=== PATIENT | female | born 1985 | race Caucasian/White ===

== ENCOUNTER → 2017-03-25 | Outpatient (CLI) | payer OTHER ==
[2017-03-25 16:35] LABS: BASO # 0.1 10^3/uL (0.0-0.2); BASO % 0.6 % (0.0-1.0); EOS # 0.2 10^3/uL (0.0-0.50); HEMOGLOBIN 15.4 g/dl (12.0-16.0); IMMATURE GRANULOCYTE % 0.2 % (0-0); LYMPH # 2.6 10^3/uL (1.5-4.5); LYMPH % 30.1 % (24.0-44.0); MEAN CORPUSCULAR HEMOGLOBIN 29.3 pg (27.0-33.0); MEAN CORPUSCULAR VOLUME 83.8 fl (80.0-96.0); MONO # 0.7 10^3/uL (0.0-0.8); MONO % 7.8 % (0.0-5.0); NEUTROPHILS # 5.1 10^3/uL (1.8-7.7); NEUTROPHILS % 59.3 % (36.0-66.0); PLATELET COUNT, AUTOMATED 267 10^3/uL (150-450); RED BLOOD COUNT 5.25 10^6/uL (4.00-5.40); RED CELL DISTRIBUTION WIDTH 12.7 % (11.5-14.5); WHITE BLOOD COUNT 8.6 10^3/uL (4.0-10.0)
[2017-03-25 17:14] LABS: ESTIMATED AVERAGE GLUCOSE 91 MG/DL (60-110); HEMOGLOBIN A1c 4.8 %
[2017-03-25 17:21] LABS: FREE T4 0.76 NG/DL (0.76-1.46)
== END ==
LOC: M LAB 15:46
DX: N92.6 Irregular menstruation, unspecified (principal)
CPT/HCPCS: 84443

== ENCOUNTER → 2018-03-31 | Outpatient (REF) | payer OTHER ==
[2018-04-03 18:21] LABS: HPV HYBRID CAPTURE II Negative (Negative)
== END ==
LOC: M LAB REF 18:17
PROVIDERS: ATTEND Obstetrics & Gynecology
DX: Z01.419 Encounter for gynecological examination (general) (routine) without abnormal findings (principal); Z11.51 Encounter for screening for human papillomavirus (HPV)
CPT/HCPCS: 87624; G0123

== ENCOUNTER → 2018-12-06 | Outpatient (REF) | payer OTHER ==
[2018-12-06 20:31] LABS: FREE T4 0.96 NG/DL (0.76-1.46); THYROID STIMULATING HORMONE 2.2 uIU/ML (0.358-3.740)
[2018-12-06 20:34] LABS: ESTRADIOL 56.8 PG/ML; HEMOGLOBIN A1c 4.9 %; PROLACTIN 12.1 NG/ML
== END ==
LOC: M LABDRWAD 19:43
PROVIDERS: ATTEND Obstetrics & Gynecology
DX: N97.9 Female infertility, unspecified (principal)

== ENCOUNTER → 2018-12-13 | Outpatient (CLI) | payer OTHER ==
[~2018-12-13] MED LIST: ISOVUE-370 76% 100ML VIAL (Q9967) As Ordered ONE
--- NOTE | 2018-12-13 13:47 | REP ---
Show setting.: Radiopaque contrast is infused into the endometrial canal through a catheter by the switch maker Dr. Carrillo. Fluoroscopy is performed during the infusion. There is a bicornuate uterus. The right and left endometrial canal is unremarkable. The fallopian tubes are unremarkable bilaterally. There is bilateral intraperitoneal spill. Impression: Bicornuate uterus, otherwise normal hysterosalpingogram. Fluoroscopic exposure time is 0.4 minutes. Electronically Signed by Chucho Severino MD 12/13/2018 01:38 P
== END ==
LOC: M RADPRO 11:24
PROVIDERS: ATTEND Obstetrics & Gynecology
DX: N97.0 Female infertility associated with anovulation (principal); Q51.3 Bicornate uterus
CPT/HCPCS: 58340; 74740; Q9967

== ENCOUNTER → 2019-01-11 | Outpatient (CLI) | payer OTHER ==
[~2019-01-11] MED LIST changes: -ISOVUE-370 76% 100ML VIAL (Q9967) As Ordered ONE; +PROHANCE 279.3MG/ML 15ML VIAL (A9576) As Ordered ONE
--- NOTE | 2019-01-12 09:23 | REP ---
MRI PELVIS WITH AND WITHOUT CONTRAST: TECHNIQUE: Multiple sequences obtained in the axial, coronal, and sagittal planes prior to and following the intravenous administration of 15 mL ProHance. The uterus is retroverted. Length of the uterus is approximately 7.7 cm. There are two horns of the uterine cavity, and the uterus has a complete septate configuration, with a midline septation dividing the endometrial cavity in two, extending all the way to the internal cervical os. Endometrial thickness in each horn is approximately 4 mm. No focal myometrial abnormality is seen. Ovaries are normal in size and appearance with normal subcentimeter follicles bilaterally. No adnexal mass or free fluid is seen. There is no adenopathy in the pelvis. The visualized osseous structures appear unremarkable. There is no enhancing mass on postcontrast images. IMPRESSION: Uterus has a complete septate configuration, as discussed in detail above. Ovaries appear normal. Electronically Signed by Chucho Davidson MD 01/12/2019 02:20 P
== END ==
LOC: M RAD 16:43
PROVIDERS: ATTEND Obstetrics & Gynecology
DX: Q51.818 Other congenital malformations of uterus (principal); N85.4 Malposition of uterus
CPT/HCPCS: 72197; A9576

== ENCOUNTER → 2019-09-26 | Outpatient (REF) | payer OTHER ==
[~2019-09-26] MED LIST changes: +MULTTAB20 PO; -PROHANCE 279.3MG/ML 15ML VIAL (A9576) As Ordered ONE; +QC F0.52 PO; +VITA-243 PO
== END ==
LOC: M LAB REF 17:17
PROVIDERS: ATTEND Physician Assistant
DX: D23.5 Other benign neoplasm of skin of trunk (principal)

== ENCOUNTER → 2020-01-25 | Outpatient (CLI) | payer OTHER ==
[2020-01-25 07:29] LABS: HCG, SERUM QUANTITATIVE < 1.0 MIU/ML
--- NOTE | 2020-01-25 07:37 | REPVR ---
PROCEDURE INFORMATION: Exam: US Pelvis, Transvaginal Exam date and time: 01/25/2020 6:57 AM Age: 34 years old Clinical indication: Screening exam; Follicle study; Additional info: Ovarian dysfunction labs 1st main reg TECHNIQUE: Imaging protocol: Real-time transvaginal pelvic ultrasound with image documentation. Transvaginal imaging was used for better evaluation of the endometrium, adnexa, and/or cervix. COMPARISON: MRI PELVIS W/O FOLL WITH CON 01/11/2019 6:07 PM FINDINGS: Uterus/cervix: Uterus measures 7.2 x 3.0 x 5.3 cm. Septate uterus with 2 endometrial canals better seen on prior MR examination. Endometrial stripe measures 4.8 mm . Right adnexa: Right ovary measures 3.5 x 1.9 x 2.7 cm. Multiple prominent follicles are seen in the right ovary measuring up to 10 mm. Left adnexa: Left ovary measures 2.2 x 1.2 x 1.8 cm. Few follicles are also seen in the left ovary measuring up to 6 mm. Intraperitoneal space: No free fluid. IMPRESSION: Septate uterus with 2 endometrial canals better seen on the MR examination. Multiple follicles in the right ovary and few follicles in the left ovary. No free fluid. Electronically signed by: Loretta Pierson On 01/25/2020 07:36:45 AM
[2020-01-25 08:33] LABS: ESTRADIOL 38.4 PG/ML; LUTEINIZING HORMONE 3.8 mIU/mL; PROGESTERONE 0.42 NG/ML
[2020-01-25 08:34] LABS: FOLLICLE STIMULATING HORMONE 7.2 mIU/mL
== END ==
LOC: M RAD 06:25
PROVIDERS: ATTEND Obstetrics & Gynecology Reproductive Endocrinology
DX: E28.9 Ovarian dysfunction, unspecified (principal)

== ENCOUNTER → 2020-02-01 | Outpatient (CLI) | payer OTHER ==
--- NOTE | 2020-02-01 08:06 | REPVR ---
PROCEDURE INFORMATION: Exam: US Pelvis, Transvaginal Exam date and time: 02/01/2020 7:00 AM Age: 34 years old Clinical indication: Screening exam; Follilce study; Additional info: Ovarian dysfunction labs first TECHNIQUE: Imaging protocol: Real-time transvaginal pelvic ultrasound with image documentation. Transvaginal imaging was used for better evaluation of the endometrium, adnexa, and/or cervix. COMPARISON: Transvaginal NON- US 01/25/2020 7:42 AM FINDINGS: Uterus/cervix: Retroverted uterus measures about 7.1 x 3.3 x 5.3 cm. Endometrial thickness is 7.2 mm on 1 image and 4 mm on a 2nd image. Right adnexa: Right ovary measures 3.4 x 2.7 x 4.4 cm with multiple follicles of somewhat varying size measuring up to 10 x 13, 8 x 9, 12 x 7 and 13 x 10 mm. Left adnexa: The left ovary measures 4.1 x 1.9 cm on sagittal images. The largest follicle is measured at 15 x 12 mm with other smaller follicles measuring 5, 8, 7, 7, 6, and 5 mm in largest diameter. Intraperitoneal space: None. IMPRESSION: 1. Right ovary measures 3.4 x 2.7 x 4.4 cm with multiple follicles of varying size measuring up to 10 x 13, 8 x 9, 12 x 7 and 13 x 10 mm. 2. The left ovary measures 4.1 x 1.9 cm on sagittal images. The largest follicle is measured at 15 x 12 mm with other smaller follicles measuring 5, 8, 7, 7, 6, and 5 mm in largest diameter. Electronically signed by: Morgan Eugene On 02/01/2020 08:05:57 AM
[2020-02-01 09:24] LABS: ESTRADIOL 86.7 PG/ML; LUTEINIZING HORMONE 4.9 mIU/mL; PROGESTERONE 0.28 NG/ML
== END ==
LOC: M RAD 06:25
PROVIDERS: ATTEND Obstetrics & Gynecology Reproductive Endocrinology
DX: E28.9 Ovarian dysfunction, unspecified (principal)

== ENCOUNTER → 2020-02-03 | Outpatient (CLI) | payer OTHER ==
--- NOTE | 2020-02-03 09:02 | REP ---
INDICATION: INFERTILITY LAB 1ST US 2ND. COMPARISON: 02/01/2020 TECHNIQUE: Endovaginal probe pelvic ultrasound for fertility evaluation FINDINGS: Sonographic evaluation again shows retroverted uterus measuring 7.9 x 3.3 x 4.9 cm endometrial stripe has 3 line appearance and thickness of 7.9 mm. No fluid in the endometrial cavity or endocervical canal. Uterus has a subseptate configuration. No fluid in the cul-de-sac. The right ovary is 3.6 x 2.2 x 2.6 cm. There are 5 follicles a cm or larger and they measure as follows: 11 x 8.2 mm, 10.3 x 5.9 mm, 12.7 x 0.2 mm, 16.6 x 10 mm, 10.4 x 6.5 mm. Additionally, there are 11 follicles in the 3-8 mm range. The left ovary is 3.5 x 2.5 x 3.5 cm. There are 2 follicles over a cm with the larger 20.6 x 15.5 mm in the smaller 10.3 x 7.3 mm. There are an additional 6 follicles in the 3-7.9 mm range. IMPRESSION: 1. Retroverted uterus with no fluid in the cul-de-sac or endometrial cavity. Endometrial stripe 7.9 mm in 3 line appearance 2. The right ovary with 5 follicles over a cm and 11 subcentimeter follicles. 3. Left ovary with 2 follicles over a cm and 6 in subcentimeter range. See details above <Electronically signed by Ulises Carvajal > 02/03/20 0858
[2020-02-03 09:06] LABS: ESTRADIOL 157.1 PG/ML; LUTEINIZING HORMONE 3.7 mIU/mL; PROGESTERONE 0.29 NG/ML
== END ==
LOC: M RAD 07:30
PROVIDERS: ATTEND Obstetrics & Gynecology Reproductive Endocrinology
DX: E28.9 Ovarian dysfunction, unspecified (principal)

== ENCOUNTER → 2020-04-27 | Outpatient (CLI) | payer BC ==
--- NOTE | 2020-04-27 08:46 | REP ---
INDICATION: OVARIAN DYSFUNCTION LABS FIRST COMPARISON: 02/03/2020 TECHNIQUE: Transvaginal evaluation of the pelvis and adnexa with color Doppler evaluation of the ovaries. FINDINGS: Bladder is collapsed. Uterus has a septated appearance and measures 6.9 x 3.8 x 5.2 cm. The left endometrial complex measures 3 mm thickness while the right endometrial complex measures 5 mm thickness with suggestion for 6 mm polyp. Right ovary measures 3.6 x 2.0 x 3.4 cm and includes innumerable follicles between 2 and 9 mm. Left ovary measures 2.7 x 1.2 x 2.4 cm and includes 10 mm follicle along with innumerable follicles between 2 and 9 mm. No pelvic fluid. IMPRESSION: Uterus appears septated as described above with possible 6 mm polyp in the right endometrial complex. Ovaries demonstrate innumerable primarily subcentimeter follicles. <Electronically signed by Shahid Howard > 04/27/20 0813
[2020-04-27 08:55] LABS: HCG, SERUM QUANTITATIVE < 1.0 MIU/ML
[2020-04-27 10:01] LABS: LUTEINIZING HORMONE 5.6 mIU/mL; PROGESTERONE 0.42 NG/ML
[2020-04-27 10:02] LABS: ESTRADIOL 33.5 PG/ML; FOLLICLE STIMULATING HORMONE 6.7 mIU/mL
== END ==
LOC: M RAD 07:26
PROVIDERS: ATTEND Obstetrics & Gynecology Reproductive Endocrinology
DX: E28.9 Ovarian dysfunction, unspecified (principal)

== ENCOUNTER → 2020-05-04 | Outpatient (CLI) | payer BC ==
--- NOTE | 2020-05-04 08:32 | REP ---
INDICATION: INFERTILTIY - STAT LABS FIRST. COMPARISON: Comparison study 27 April 2020.. TECHNIQUE: Transvaginal pelvic sonography. Ovarian follicle study. FINDINGS: Uterine dimensions are 7.4 x 3.0 x 5.1 cm. Subseptate uterine morphology is seen. Endometrial echo is 0.7 cm thick. No free fluid or focal uterine mass. Right ovarian dimensions overall today are 3.0 x 3.4 x 3.4 cm. There are 4 follicles measuring greater than a cm in the right ovary as follows: 2.0 x 1.2, 1.6 x 1.2, 1.3 x 0.7, and 1.0 x 0.8 cm. In addition, the right ovary contains 5 follicles ranging in size from 0.4-0.8 cm. The overall dimensions of the left ovary are 4.3 x 2.5 x 3.0 cm. There are 2 follicles in the left ovary greater than a cm as follows: 1.4 x 1.2 and, and 1.0 x 0.7 cm. In addition, the left ovary contains 6 follicles ranging in size from 0.50.9 cm. IMPRESSION: Pelvic sonography, ovarian follicle study as above. <Electronically signed by Sergio Madrigal > 05/04/20 0839
[2020-05-04 10:00] LABS: ESTRADIOL 166.2 PG/ML; LUTEINIZING HORMONE 2.7 mIU/mL; PROGESTERONE 0.49 NG/ML
== END ==
LOC: M RAD 06:34
PROVIDERS: ATTEND Obstetrics & Gynecology Reproductive Endocrinology
DX: E28.9 Ovarian dysfunction, unspecified (principal)

== ENCOUNTER → 2020-05-07 | Outpatient (CLI) | payer BC ==
--- NOTE | 2020-05-07 08:11 | REP ---
INDICATION: INFERTILITY -STAT LABS FIRST. COMPARISON: May 04, 2020.. TECHNIQUE: Transvaginal pelvic sonography. Ovarian follicle study. FINDINGS: Uterine dimensions are 8.0 x 3.8 x 6.0 cm. Endometrial stripe is 0.9 cm thick. Subseptate morphology. Small amount of fluid is seen in the posterior cul-de-sac. The overall dimensions of the right ovary today are 4.9 x 4.2 x 3.7 cm. There are 7 follicles identified in the right ovary each measuring over a cm as follows: 1.8 x 1.0, 1.4 x 0.8, 1.2 x 0.7, 1.9 x 1.2, 2.5 x 1.3, 1.8 x 1.0, 1.1 x 0.7 cm. In addition, the right ovary contains 5 follicles ranging in size from 0.4-0.9 cm. The overall dimensions of the left ovary today are 5.3 x 4.5 x 4.2 cm. There are 14 follicles identified in the left ovary measuring over a cm as follows: 1.2 x 1.2, 1.1 x 0.8, 2.2 x 1.3, 2.0 x 1.0, 1.0 by 0.8, 1.3 x 0.9, 1.5 x 1.1, 1.4 x 0.9, 1.7 x 1.1, 1.3 x 1.0, 1.1 x 0.8, 1.8 x 1.7, 1.4 x 1.1, and 1.4 x 0.9 cm. In addition, there are 4 smaller follicles in the left ovary ranging in size from 0.4 to 0.9 cm. IMPRESSION: Ovarian follicle study as above. <Electronically signed by Sergio Madrigal > 05/07/20 [id number]
[2020-05-07 11:25] LABS: LUTEINIZING HORMONE 7.1 mIU/mL; PROGESTERONE 1.46 NG/ML
== END ==
LOC: M RAD 06:32
PROVIDERS: ATTEND Obstetrics & Gynecology Reproductive Endocrinology
DX: E28.9 Ovarian dysfunction, unspecified (principal)

== ENCOUNTER → 2020-05-21 | Outpatient (CLI) | payer BC ==
[2020-05-21 10:57] LABS: ESTRADIOL 437.5 PG/ML; PROGESTERONE 31.01 NG/ML
== END ==
LOC: M LAB 06:34
PROVIDERS: ATTEND Obstetrics & Gynecology Reproductive Endocrinology
DX: E28.9 Ovarian dysfunction, unspecified (principal)

== ENCOUNTER → 2020-05-25 | Outpatient (CLI) | payer BC ==
[2020-05-25 07:24] LABS: HCG, SERUM QUANTITATIVE < 1.0 MIU/ML
[2020-05-25 08:42] LABS: PROGESTERONE 41.73 NG/ML
== END ==
LOC: M LAB 06:32
PROVIDERS: ATTEND Obstetrics & Gynecology Reproductive Endocrinology
DX: Z32.00 Encounter for pregnancy test, result unknown (principal)

== ENCOUNTER → 2020-06-01 | Outpatient (CLI) | payer BC ==
--- NOTE | 2020-06-01 07:17 | REPVR ---
PROCEDURE INFORMATION: Exam: US Pelvis, Transvaginal Exam date and time: 06/01/2020 6:49 AM Age: 34 years old Clinical indication: Condition or disease; Patient HX: Infertility- follicle study; Additional info: Infertility- lab first TECHNIQUE: Imaging protocol: Real-time transvaginal pelvic ultrasound with image documentation. Transvaginal imaging was used for better evaluation of the endometrium, adnexa, and/or cervix. COMPARISON: Transvaginal NON- US 05/07/2020 7:12 AM FINDINGS: Uterus/cervix: The uterus measures 7.2 x 3.9 x 5.7 cm. It again has a sub septated morphology and is homogeneous in echotexture, without demonstrated lesion. The endometrium measures 4.6 mm in thickness. Right adnexa: The right ovary measures 3.4 x 4.6 x 3.2 cm. It contains complex cysts measuring 1.9 x 1.0 cm, 1.3 x 0.9 cm, 2.4 x 1.8 cm, as well as 7 additional follicles measuring between 3.5 mm and 8.9 mm. Left adnexa: The left ovary measures 2.2 x 3.2 x 2.0 cm. It contains a complex follicle measuring 10 x 5 mm, as well as 22 additional follicles measuring between 3.1 and 9.8 mm. Intraperitoneal space: Small free fluid is present in the cul-de-sac. IMPRESSION: Ovarian follicle study as above. Electronically signed by: Mark Taylor On 06/01/2020 07:17:48 AM
[2020-06-01 12:18] LABS: ESTRADIOL 37.9 PG/ML; LUTEINIZING HORMONE 2.9 mIU/mL; PROGESTERONE 0.21 NG/ML
[2020-06-05 13:31] LABS: HCG, SERUM QUANTITATIVE < 1.0 MIU/ML
[2020-06-05 13:33] LABS: FOLLICLE STIMULATING HORMONE 6.9 mIU/mL
== END ==
LOC: M RAD 06:08
PROVIDERS: ATTEND Obstetrics & Gynecology Reproductive Endocrinology
DX: E28.9 Ovarian dysfunction, unspecified (principal)

== ENCOUNTER → 2020-06-06 | Outpatient (CLI) | payer BC ==
--- NOTE | 2020-06-06 09:22 | REP ---
INDICATION: OVARIAN DYSFUNCTION- LABS FIRST COMPARISON: 06/01/2020 TECHNIQUE: Transvaginal pelvic ultrasound. FINDINGS: Heterogeneous retroverted uterus measures 6.6 x 5.3 x 3.0 cm with a somewhat septated configuration suggested. The endometrial complex measures 6 mm thickness. Right ovary measures 4.6 x 3.1 x 2.5 cm and includes 19 x 25 mm, 7 x 7 mm, 6 x 5 mm, 13 x 15 mm, 9 x 5 mm, and 5 x 6 mm follicles. Left ovary measures 3.3 x 2.4 x 1.9 cm and includes 8 x 6 mm, 9 x 5 mm, 8 x 6 mm, 9 x 9 mm, and 9 x 5 mm follicles. IMPRESSION: Heterogeneous possible septated uterus. Primarily bilateral subcentimeter follicles. <Electronically signed by Shahid Howard > 06/06/20 0918
[2020-06-06 11:10] LABS: ESTRADIOL 289.1 PG/ML; PROGESTERONE 0.21 NG/ML
== END ==
LOC: M RAD 08:29
PROVIDERS: ATTEND Obstetrics & Gynecology Reproductive Endocrinology
DX: E28.9 Ovarian dysfunction, unspecified (principal)

== ENCOUNTER → 2020-06-08 | Outpatient (CLI) | payer BC ==
--- NOTE | 2020-06-08 07:34 | REPVR ---
PROCEDURE INFORMATION: Exam: US Pelvis, Transvaginal Exam date and time: 06/08/2020 7:04 AM Age: 34 years old Clinical indication: Other: Ovarian dysfunction TECHNIQUE: Imaging protocol: Real-time transvaginal pelvic ultrasound with image documentation. Transvaginal imaging was used for better evaluation of the endometrium, adnexa, and/or cervix. COMPARISON: Transvaginal NON- US 06/06/2020 8:54 AM FINDINGS: Uterus/cervix: Uterus measures 9.0 x 3.7 by 6.4 cm. Endometrium measures 8 mm in diameter. Right adnexa: Right ovary measures 4.7 x 3.2 x 4.2 cm. Complex right ovarian cysts, the largest measuring 2.5 cm. Six week follow-up ultrasound is recommended to ensure interval resolution. Left adnexa: Left ovary measures 2.9 x 1.9 x 3.3 cm. Subcentimeter follicles. Intraperitoneal space: Trace free fluid. IMPRESSION: Complex right ovarian cysts, the largest measuring 2.5 cm. Six week follow-up ultrasound is recommended to ensure interval resolution. Electronically signed by: Jose Ramirez On 06/08/2020 07:34:17 AM
[2020-06-08 09:39] LABS: PROGESTERONE 0.21 NG/ML
== END ==
LOC: M RAD 06:05
PROVIDERS: ATTEND Obstetrics & Gynecology Reproductive Endocrinology
DX: N83.201 Unspecified ovarian cyst, right side (principal); E28.9 Ovarian dysfunction, unspecified

== ENCOUNTER → 2020-06-19 | Outpatient (CLI) | payer BC ==
[2020-06-19 14:05] LABS: ESTRADIOL 742.4 PG/ML; PROGESTERONE 41.25 NG/ML
== END ==
LOC: M LAB 06:26
PROVIDERS: ATTEND Obstetrics & Gynecology Reproductive Endocrinology
DX: E28.9 Ovarian dysfunction, unspecified (principal)

== ENCOUNTER → 2020-06-28 | Outpatient (CLI) | payer BC ==
[~2020-06-28] MED LIST changes: +COQ150CH PO; +ENDO100S PV; +ESTR1TAB3 PO; +FISH1000 PO; +LOVE1INJ SC; +METF500T13 PO; +NALT50TA4 PO; +PRED5TA PO; +PROG50IN4 IM
[2020-06-28 08:22] LABS: THYROID STIMULATING HORMONE 1.11 uIU/ML (0.358-3.740)
[2020-06-28 09:58] LABS: PROGESTERONE 39.61 NG/ML
[2020-06-28 09:59] LABS: ESTRADIOL 1539.9 PG/ML
== END ==
LOC: M LAB 07:27
PROVIDERS: ATTEND Obstetrics & Gynecology Reproductive Endocrinology
DX: Z32.01 Encounter for pregnancy test, result positive (principal)

== ENCOUNTER → 2020-07-04 | Outpatient (REF) | payer BC, OTHER | LOC: M SFHCWAGY 17:05 | PROVIDERS: ATTEND Advanced Practice Midwife | DX: O26.899 Other specified pregnancy related conditions, unspecified trimester (principal) ==

== ENCOUNTER → 2020-07-06 | Outpatient (CLI) | payer BC ==
--- NOTE | 2020-07-06 09:43 | REP ---
INDICATION: PREG DATING VIABILITY. COMPARISON: 06/08/2020. TECHNIQUE: Transvaginal pelvic ultrasound performed. FINDINGS: There is a single living intrauterine gestation. The estimated gestational age is 5 weeks 5 days based on a crown-rump length of 2 mm, EDC 03/03/2021. heart rate is 104 beats per minute. There is no subchorionic hemorrhage. The left ovary could not be visualized. The right ovary is normal in size and echotexture and demonstrates internal blood flow with duplex Doppler evaluation. IMPRESSION: Viable intrauterine gestation with estimated gestational age 5 weeks 5 days and heart rate 104 beats per minute. EDC 03/03/2021. <Electronically signed by Chucho Davidson > 07/06/20 0939
[2020-07-06 10:08] LABS: ESTRADIOL 875.4 PG/ML; PROGESTERONE 32.28 NG/ML
== END ==
LOC: M LAB 08:31 → M RAD 08:31
PROVIDERS: ATTEND Obstetrics & Gynecology Reproductive Endocrinology
DX: Z36.89 Encounter for other specified antenatal screening (principal); Z3A.01 Less than 8 weeks gestation of pregnancy

== ENCOUNTER → 2020-07-13 | Outpatient (CLI) | payer BC ==
--- NOTE | 2020-07-13 07:21 | REPVR ---
PROCEDURE INFORMATION: Exam: US , Transvaginal Exam date and time: 07/13/2020 6:40 AM Age: 34 years old Clinical indication: Screening exam; Routine US, uterus; Patient HX: Ivf patient; Additional info: (+) preg viability 6+ wks f/u- stat labs 1st TECHNIQUE: Imaging protocol: Real-time transvaginal obstetrical ultrasound of the maternal pelvis with image documentation. Transvaginal imaging was used for better evaluation of the fetus, adnexa, and/or cervix. COMPARISON: TRANSVAGINAL US 07/06/2020 9:06 AM FINDINGS: Last menstrual period: Last menstrual period is unknown. Gestation: There is a single intrauterine . There is a normal appearing gestational sac with a yolk sac and pole. heart rate: Estimated heart rate is 141 bpm. Placenta: There is no subchorionic hemorrhage. BIOMETRY: Gestational age (AUA): Grubbs rump length of 0.8 cm yields an estimated gestational age of 6 weeks and 6 days. Estimated due date (AUA): GERALDINE by ultrasound is 03/02/2021, concordant with prior imaging. IMPRESSION: There is a single live intrauterine gestation with a crown rump length of 0.8 cm which yields 6 weeks and 6 days size and an ultrasound EDC of 03/02/2021, concordant with prior imaging. Electronically signed by: Pranav Rose On 07/13/2020 07:20:31 AM
[2020-07-13 07:35] LABS: PROGESTERONE 26.72 NG/ML
== END ==
LOC: M RAD 06:13
PROVIDERS: ATTEND Obstetrics & Gynecology Reproductive Endocrinology
DX: O09.00 Supervision of pregnancy with history of infertility, unspecified trimester (principal); Z3A.01 Less than 8 weeks gestation of pregnancy

== ENCOUNTER → 2020-08-03 | Outpatient (REF) | payer BC ==
[2020-08-03 13:55] LABS: HEMATOCRIT 46.1 % (36.0-47.0); HEMOGLOBIN 15.3 g/dl (12.0-15.5); MEAN CORPUSCULAR HEMOGLOBIN 29.7 pg (27.0-33.0); MEAN CORPUSCULAR HGB CONC 33.2 g/dl (32.0-36.5); MEAN CORPUSCULAR VOLUME 89.3 fl (80.0-96.0); PLATELET COUNT, AUTOMATED 262 10^3/uL (150-450); RED BLOOD COUNT 5.16 10^6/uL (4.00-5.40); WHITE BLOOD COUNT 11.7 10^3/uL (4.0-10.0)
[2020-08-03 14:54] LABS: HIV 1&2 SCREEN CENTAUR NEGATIVE (NEGATIVE)
[2020-08-03 15:21] LABS: CHLAMYDIA DNA AMPLIFICATION NEGATIVE (NEGATIVE); GC DNA AMPLIFICATION NEGATIVE (NEGATIVE)
== END ==
LOC: M PLALAB 10:39
PROVIDERS: ATTEND Advanced Practice Midwife
DX: Z36.9 Encounter for antenatal screening, unspecified (principal)

== ENCOUNTER → 2020-10-02 | Outpatient (CLI) | payer BC ==
--- NOTE | 2020-10-02 23:01 | REP ---
INDICATION: ANATOMY COMPARISON: None. TECHNIQUE: Transabdominal obstetrical ultrasound with color Doppler evaluation. FINDINGS: Examination demonstrates a single live intrauterine in breech presentation. motion is identified by technologist. Placenta is noted anterior and grade 0 without evidence for placenta previa or abruption. Amniotic fluid volume is normal. Cervix measures 4.3 cm in length and appears closed.. Selected gestational age: 18 weeks 4 days with GERALDINE 03/01/2021. Gestational age by current measurements 18 weeks 2 days with GERALDINE 03/03/2021. FHR equals 156 beats per minute. Estimated weight 229 grams (25thpercentile). Anatomical assessment demonstrates normal structures including cranium, choroid plexus, cavum, cerebellum/posterior fossa, facial features, lungs, four-chamber heart/ventricular outflow tracts, diaphragm, stomach, cord insertion/three-vessel cord, kidneys/bladder, spine, and extremities. IMPRESSION: Single live intrauterine in breech presentation demonstrating appropriate interval growth. Anatomical assessment is complete and normal. <Electronically signed by Shahid Howard > 10/02/20 1758
== END ==
LOC: M WHC 11:48
PROVIDERS: ATTEND Specialist
DX: Z34.02 Encounter for supervision of normal first pregnancy, second trimester (principal); Z3A.18 18 weeks gestation of pregnancy

== ENCOUNTER → 2020-11-23 | Outpatient (CLI) | payer BC ==
[2020-11-23 10:52] LABS: HEMATOCRIT 39.7 % (36.0-47.0); HEMOGLOBIN 13.3 g/dl (12.0-15.5); MEAN CORPUSCULAR HEMOGLOBIN 29.1 pg (27.0-33.0); MEAN CORPUSCULAR HGB CONC 33.5 g/dl (32.0-36.5); MEAN CORPUSCULAR VOLUME 86.9 fl (80.0-96.0); PLATELET COUNT, AUTOMATED 236 10^3/uL (150-450); RED BLOOD COUNT 4.57 10^6/uL (4.00-5.40)
[2020-11-23 12:39] LABS: GC DNA AMPLIFICATION NEGATIVE (NEGATIVE)
== END ==
LOC: M PLALAB 08:11
PROVIDERS: ATTEND Specialist
DX: Z36.89 Encounter for other specified antenatal screening (principal)

== ENCOUNTER 2020-12-29 17:19 | Inpatient (IN) | payer BC ==
[~2020-12-29] VITALS: Ht 167.6 cm; Wt 92.7 kg
[2020-12-29] MEDS ORDERED: TERBUTALINE SULFATE 1 MG/ML VIAL (J3105) As Ordered ONE (17:36)
[2020-12-29] MEDS ORDERED: SUCCINYLCHOLINE 100 MG/5 ML SYRINGE (J0330) As Ordered ONE (17:49)
[2020-12-29] MEDS ORDERED: MIDAZOLAM INJ 2MG/2ML VIAL (J2250 PER 1MG) As Ordered ONE (17:49)
[2020-12-29] MEDS ORDERED: propofoL 200 MG/20 ML VIAL As Ordered ONE (17:49)
[2020-12-29] MEDS ORDERED: fentaNYL 100 MCG/2 ML INJECTION (J3010) As Ordered ONE ×2 (17:51→19:01)
[2020-12-29] MEDS ORDERED: ROCURONIUM BROMIDE 50 MG/5 ML VIAL As Ordered ONE (18:06)
[2020-12-29] MEDS ORDERED: MORPHINE PRES-FREE INJ 10 MG/10 ML VIAL (J2274) As Ordered ONE (18:15)
[2020-12-29] MEDS ORDERED: ceFAZolin 2 GM/D5W 50 ML IV BAG (J0690 PER 500MG) As Ordered ONE (18:26)
[2020-12-29] MEDS ORDERED: OXYTOCIN 30 UNITS IN 0.9% NaCl 500ML IV BAG (J2590) As Ordered ONE (18:26)
[2020-12-29 18:35] LABS: HEMATOCRIT 35.1 % (36.0-47.0); HEMOGLOBIN 11.7 g/dl (12.0-15.5); MEAN CORPUSCULAR HEMOGLOBIN 29.4 pg (27.0-33.0); MEAN CORPUSCULAR HGB CONC 33.3 g/dl (32.0-36.5); MEAN CORPUSCULAR VOLUME 88.2 fl (80.0-96.0); PLATELET COUNT, AUTOMATED 251 10^3/uL (150-450); RED BLOOD COUNT 3.98 10^6/uL (4.00-5.40)
[2020-12-29 18:45] LABS: CORD GAS ABE A -7.2; CORD GAS ABE V -7.8; CORD GAS HCO3 A 21.1 MEQ/L; CORD GAS HCO3 V 23.4 MEQ/L; CORD GAS O2 SAT V 21.9 %; CORD GAS PCO2 A 52.6 mmHg; CORD GAS PCO2 V 72.7 mmHg; CORD GAS PH A 7.222 UNITS; CORD GAS PH V 7.126 UNITS; CORD GAS PO2 A 24.3 mmHg; CORD GAS PO2 V 14.6 mmHg; CORD GAS SBC V 16.5 MEQ/L; CORD GAS TCO2 A 22.8 MEQ/L; CORD GAS TCO2 V 25.7 MEQ/L
[2020-12-29 18:46] LABS: CORD GAS O2 SAT A 57.3 %; CORD GAS SBC A 17.7 MEQ/L
[2020-12-29] MEDS ORDERED: SUGAMMADEX SODIUM 500 MG/5 ML VIAL (BRIDION) As Ordered ONE (18:46)
--- NOTE | 2020-12-29 19:26 | REP ---
INDICATION: stat c/s COMPARISON: None. TECHNIQUE: Portable intraoperative supine views of the abdomen and pelvis. FINDINGS: There is a lucent rectangular structure overlying the left hip/pelvis which may be extrinsic to the patient and should be correlated clinically. No retained surgical material is otherwise appreciated. Bowel gas pattern is nonspecific. No organomegaly. Skeletal structures intact. IMPRESSION: No definite foreign body/retained surgical material appreciated. As above. <Electronically signed by Shahid Howard > 12/29/201922
[2020-12-29] MEDS ORDERED: LR 1,000 ML IV SCH (19:35)
[2020-12-29] MEDS ORDERED: oxyCODONE 5MG TAB PO PRN (19:35)
[2020-12-29] MEDS ORDERED: METOCLOPRAMIDE INJ 10MG/2ML VIAL (J2765 PER 1) IV PRN (19:35)
[2020-12-29] MEDS ORDERED: fentaNYL 100 MCG/2 ML INJECTION (J3010) IV PRN (19:35)
[2020-12-29] MEDS ORDERED: ONDANSETRON 4MG/2ML VIAL IV PRN ×2 (19:35→20:35)
[2020-12-29] MEDS: MEPERIDINE INJ 25 MG/ML VIAL (J2175) IV PRN ×2 (20:10→20:16)
[2020-12-29 20:30] VITALS: BP 152/86
[2020-12-29] MEDS ORDERED: OXYTOCIN DRIP 30 UNITS in IV 1 EA IV SCH (20:35)
[2020-12-29] MEDS ORDERED: PERCOCET 5MG/325MG TAB PO PRN ×2 (20:35)
[2020-12-29] MEDS ORDERED: MEASLES,MUMPS,RUBELLA VACCINE INJ (MMR-II) (90707) SC SCH (20:35)
[2020-12-29] MEDS ORDERED: RHOGAM 300 MCG (1500 IU) INJ (J2790) IM SCH (20:35)
[2020-12-29] MEDS ORDERED: ACETAMINOPHEN 500 MG TAB PO PRN (20:35)
[2020-12-29] MEDS ORDERED: SIMETHICONE 80MG CHEW TAB PO PRN (20:35)
[2020-12-29 21:00] VITALS: BP 143/96
[2020-12-29] MEDS: DOCUSATE SODIUM 100MG CAPSULE PO SCH (21:00)
[2020-12-29] MEDS ORDERED: KETOROLAC 30 MG/ML 1ML VIAL IV SCH (21:35)
--- NOTE | 2020-12-29 21:56 | HPEPDOC ---
Obstetrical History & Physical General Date of Admission Dec 29, 2020 at 17:36 History of Present Illness 35-year-old G1, P0 at 31+1 weeks gestation. Presented with frequent, painful uterine contractions over the past several hours. Patient had questionable loss of fluid and reported minimal vaginal bleeding prior to her arrival. Reports regular movement throughout today. 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 OB: G1, IVF Sochx: No tobacco, alcohol or drug use FamHx: Uterine cancer paternal grandmother, hypertension labs: Blood type A+, antibody screen negative, HepBsAg neg, HIV neg, rubella immune, Hep C antibody negative, RPR nonreactive, CT/GC neg, urine culture negative, 1 hour glucose challenge test 130, GBS unknown imaging: no anomalies or placental abnormalities Past Medical History Allergies Coded Allergies: Penicillins (Verified Allergy, Intermediate, HIVES, 12/23/19) Medications Scheduled Ascorbic Acid (Vitamin C) 500 Mg Tablet, 1 TAB PO DAILY Enoxaparin Sodium (Lovenox) 40 Mg/0.4 Ml Syringe, 30 MG SC DAILY Estradiol (Estrace) 1 Mg Tablet, 2 MG PO QID Metformin HCl (Metformin HCl) 500 Mg Tablet, 1 TAB PO TID Naltrexone HCl (Naltrexone HCl) 50 Mg Tablet, 4.5 MG PO DAILY Prednisone (Prednisone) 5 Mg Tablet, 1 TAB PO BID No122/Iron/Folic Acid ( Multi Tablet) 1 Each Tablet, 1 TAB PO DAILY Progesterone, Micronized (Endometrin) 100 Mg Insert, 1 TAB PV BID Psyllium Husk (Fiber) 0.52 Gm Capsule, 2 CAP PO DAILY Ubidecarenone (Coq10) 50 Mg Tab.chew, 2 TAB PO DAILY proGESTerone (Progesterone in Oil) 50 Mg/1 Ml Vial, 50 MG IM DAILY Miscellaneous Medications Dixie-3 Fatty Acids/Fish Oil (Fish Oil 1,000 mg Capsule) Unknown Strength Capsule, Unknown Dose PO Physical Examination Physical Examination GENERAL: Severely distressed, unable to communicate well, writhing in bed, patient had difficulty following instructions ABDOMEN: Gravid and tender to touch. FETUS: Single footling/incomplete breech (VTX) by sterile vaginal examination (SVE) and confirmed with bedside ultrasound HEART RATE: Regular rate and rhythm. LUNGS: Clear to auscultation (CTA). EXTREMITIES: No edema. No clonus. SVE: Bulging membranes upon her arrival, shortly thereafter membranes spontaneously ruptured productive of bloody/serosanguineous fluid. Single footling breech noted. No evidence of prolapse cord appreciated on exam. EFM: heart rate exhibited prolonged bradycardia into 60 to 70 bpm range after witnessing ruptured membranes Trezevant: Contractions every 2-5 minutes Vital Signs/I&O Vital Signs Date Time Temp Pulse Resp B/P (MAP) Pulse Ox O2 Delivery O2 Flow Rate FiO2 12/29/20 21:00 96.6 106 18 143/96 (112) 98 Room Air 12/29/20 19:50 2.0 Laboratory Data 24H LABS Laboratory Tests 2 12/29/20 17:45: Serology Scanned Report Hepatitis B Testing 12/29/20 17:56: Cord Arterial Blood pH 7.222, Cord Arterial Blood PCO2 52.6, Cord Arterial Blood PO2 24.3, Cord Arterial Blood HCO3 21.1, Cord Arterial Blood Total CO2 22.8, Co rd Arterial Blood Base Excess -7.2, Cord Arterial Base Excess (Standard 17.7, Cord Arterial Bld Oxygen Saturation 57.3, Cord Venous Blood pH 7.126, Cord Venous Blood PCO2 72.7, Cord Venous Blood PO2 14.6, Cord Venous Blood HCO3 23.4, Cord Venous Blood Total CO2 25.7, Cord Venous Base Excess (Actual) -7.8, Cord Venous Base Excess (Standard) 16.5, Cord Venous Blood Oxygen Saturation 21.9 12/29/20 18:19: Nucleated Red Blood Cells % (auto) 0.0 CBC/BMP Laboratory Tests 12/29/20 18:19 Assessment/Plan Assessment 35-year-old at 31+1 weeks gestation, who presented in spontaneous active labor in the 2nd stage. Ruptured membranes witnessed shortly after her arrival. Single footling breech presentation noted upon her arrival. heart rate noted to be bradycardic after ruptured membranes. Patient was in so much pain it was difficult to guide her to even push once. She was writhing in pain and I could not communicate effectively with her. Also, given the clinical presentation and her primiparous status I did not want to risk a complicated breech vaginal delivery. In the midst of this difficulty, I did however obtain verbal consent to proceed with an emergent delivery. I briefly discussed the risks, benefits, alternatives and indications and we proceeded to the OR. Anesthesia and the neonatology team were notified. Plan Patient was transferred emergently to the operating room. See operative note LEONIDES KINCAID DO Dec 29, 2020 21:56
[2020-12-29 22:00] VITALS: BP 138/97
[2020-12-29] MEDS ORDERED: AZITHROMYCIN INJ 500 MG, VIAL MATE ADAPTER 1 EACH in NS 250 ML IV ONE ×2 (22:00→22:20)
--- NOTE | 2020-12-29 22:21 | ROOPDOC ---
[facility] Report Of Operation Report of Operation DATE OF PROCEDURE: 12/29/2020 PREPROCEDURE DIAGNOSES: 31+1 weeks gestation, active labor, rupture of membranes, breech presentation, category 2/category 3 heart rate tracing. POSTPROCEDURE DIAGNOSES: All of the above, placental abruption noticed at time of delivery PROCEDURE: Emergent primary low transverse section SURGEON: Daljit Mccormick DO FACOG HEDIS NURSE: Brendan Arias MD (Essential role in retraction, extraction, and closure of all tissue layers) ANESTHESIA: General endotracheal ESTIMATED BLOOD LOSS: 800 mL. Intravenous fluids 1600 mL lactated Ringer 1 unit packed red blood cells administered given her level of bleeding Uterotonic's administered: 30 units IV Pitocin, 0.2 mg IM Methergine COMPLICATIONS: None. FINDINGS: Single footling breech, evidence of placental abruption upon creation of the hysterotomy, left cervical extension of the hysterotomy, left-sided large intestine adhesions to the round ligament/broad ligament Prophylactic ANTIBIOTICS: Ancef 2g IV x 1 given intraoperatively. COMPLICATIONS: none DATA: Apgars 8 and 9, weight 1760 g, 3 pounds 11 ounces, male. Cord gases: Arterial pH 7.22/-7.2, venous pH 7.13/-7.8 SPECIMENS: none PRIMARY INDICATION FOR : Breech, also: Nonreassuring heart rate tracing, active labor with ruptured membranes DESCRIPTION OF PROCEDURE: The patient was counseled on the risks, benefits, indications and alternatives of the procedure. Informed consent was obtained. She was taken to the operating room with IV running and placed on the operating table in the dorsal supine position with a leftward tilt. General anesthesia was administered and the airway was secured. She was emergently prepped and draped just prior to intubation. Sequential compression devices were placed on the lower extremities. A Jefferson catheter was placed. Once the airway was secured by anesthesia, a Pfannenstiel skin incision was made with the 10 blade. The 10 blade was used to dissect down to the level of the rectus sheath fascia. The rectus sheath pressure was incised midline and this was extended bilaterally with manual stretch. The midline was identified. The peritoneum was identified and entered digitally. The peritoneal opening was extended with manual stretch. A low transverse uterine incision was made with the 10 blade. This was extended with manual stretch. Blood and clot was expressed from the hysterotomy. I utilized an RN with a sterile glove and sleeve to lift the presenting breech. I was able to bring the sacrum anterior, then the baby delivered rapidly through the hysterotomy without difficulty or any dystocia. The cord was doubly clamped and cut, and the baby was handed off to awaiting care. data shown above. The placenta was removed manually. The intrauterine cavity was cleared of all clot and debris. The Mobius retractor was placed for better visualization of the surgical field. The hysterotomy was closed with 0 Vicryl in running locked fashion. This was reinforced with a second imbricating layer using 0 Vicryl in running fashion, this included closure of the left-sided cervical extension of the hysterotomy. The large intestinal adhesions to the round ligament/broad ligament were reduced with Metzenbaum scissors to mobilize the bowel away from the left-sided cervical extension prior to closure of this defect. This area of the bowel was free from any injury after inspection. 3-0 Vicryl was used to suture smaller bleeders ([id number] stitches) along the hysterotomy and left round ligament. Excellent hemostasis of the pelvis was noted. The pelvis was irrigated and the fluid suctioned. Ricardo was placed over the suture lines on the uterus to ensure hemostasis. The Mobius retractor was removed. The peritoneum was closed with 3-0 Vicryl running fashion. The rectus muscle bellies were reapproximated with interrupted stitches using 3-0 Vicryl. The rectus muscles bellies were hemostatic. The rectus sheath fascia was closed with 0 Vicryl running fashion. The subcutaneous layer was irrigated and the fluid suctioned. Small bleeding vessels were cauterized with Bovie. Excellent hemostasis was noted. The subcutaneous layer was reapproximated with 3-0 Vicryl running fashion. Skin was closed with 3-0 Monocryl in subcuticular fashion. An Optifoam bandage was placed over the closed incision. Sponge, needle and instrument counts were correct per protocol throughout the procedure. The patient tolerated the entire procedure very well. She was transferred to the PACU in stable condition. DO RANDY Miramontes JONATHAN R. DO Dec 29, 2020 22:21
[2020-12-29] MEDS: KETOROLAC 30 MG/ML 1ML VIAL IV SCH (22:45)
[2020-12-29 23:00] VITALS: BP 135/86
[2020-12-30 02:00] VITALS: BP 136/87
[2020-12-30] MEDS: ceFAZolin SOD 2 GM in IV 1 EA IV SCH ×3 (02:30→18:12)
[2020-12-30] MEDS: KETOROLAC 30 MG/ML 1ML VIAL IV SCH ×2 (05:25→10:53)
[2020-12-30 06:00] VITALS: BP 133/79
[2020-12-30 08:38] LABS: HEMATOCRIT 31.1 % (36.0-47.0); HEMOGLOBIN 10.8 g/dl (12.0-15.5); MEAN CORPUSCULAR HEMOGLOBIN 30.1 pg (27.0-33.0); MEAN CORPUSCULAR HGB CONC 34.7 g/dl (32.0-36.5); MEAN CORPUSCULAR VOLUME 86.6 fl (80.0-96.0); PLATELET COUNT, AUTOMATED 213 10^3/uL (150-450); RED BLOOD COUNT 3.59 10^6/uL (4.00-5.40); WHITE BLOOD COUNT 20.3 10^3/uL (4.0-10.0)
[2020-12-30 10:11] VITALS: BP 109/63
[2020-12-30] MEDS: PRENATAL VITAMINS CHEWABLE TABLET PO SCH (10:52)
[2020-12-30] MEDS: DOCUSATE SODIUM 100MG CAPSULE PO SCH ×2 (10:52→21:00)
[2020-12-30 14:00] VITALS: BP 133/88
[2020-12-30] MEDS ORDERED: METAL LOCK LOOP XX ONE ×2 (15:11→15:17)
[2020-12-30 18:00] VITALS: BP 139/85
[2020-12-30] MEDS: IBUPROFEN 800 MG TAB PO SCH (18:13)
--- NOTE | 2020-12-30 18:15 | IPNPDOC ---
Progress Note Date of Service: Dec 30, 2020 Day#: 1 Progress Note POD#1, s/p emergent PLTCS at 31+ weeks S: Patient is ambulating without difficulty, pain is well controlled, lochia is mi nimal, voiding spontaneously, and tolerating a regular diet. She is denying any LR, fever, chills, nausea/vomiting, shortness of breath or chest pain. O: Normotensive, normal HR, afebrile Abd: soft,nt,nd, fundus firm at 2cm below U. Incision bandage not soaked through. Ext: no c/c/e Item Value Date Time White Blood Count 20.3 10^3/uL H 12/30/20 0816 Hemoglobin 10.8 g/dl L 12/30/20 0816 Hematocrit 31.1 % L 12/30/20815 Platelet Count 213 10^3/uL 12/30/20815 White Blood Count 17.0 10^3/uL H 12/29/20 181 Hemoglobin 11.7 g/dl L 12/29/201818 Hematocrit 35.1 % L 12/29/201818 Platelet Count 251 10^3/uL 12/29/201818 A/P: POD#1. Hemodynamically stable, afebrile, good pain control. -Reviewed patient's intraoperative course and discussed rationale for the decisions that were made during her emergency; all questions answered. -Routine /postoperative care -Anticipate d/c home tomorrow VS, I&O, 24H, Fishbone Vital Signs/I&O Vital Signs Date Time Temp Pulse Resp B/P (MAP) Pulse Ox O2 Delivery O2 Flow Rate FiO2 12/30/20 14:00 98.6 98 17 133/88 (103) 98 Room Air 12/29/20 19:50 2.0 I&O- Last 24 Hours up to 6 AM 12/30/20 06:00 Intake Total 2550 ml Output Total 1275 ml Balance 1275 ml Laboratory Data 24H LABS Laboratory Tests 2 12/29/20 18:19: Nucleated Red Blood Cells % (auto) 0.0 12/30/20 08:16: Nucleated Red Blood Cells % (auto) 0.0 CBC/BMP Laboratory Tests 12/29/20 18:19 12/30/20 08:16 LEONIDES KINCAID DO Dec 30, 2020 18:14
[2020-12-30] MEDS ORDERED: METHYLERGONOVINE MALEATE 0.2 MG/ML VIAL (J2210) ONE (18:44)
[2020-12-30 22:15] VITALS: BP 124/75
[2020-12-31] MEDS: ceFAZolin SOD 2 GM in IV 1 EA IV SCH ×2 (02:06→10:30)
[2020-12-31] MEDS: IBUPROFEN 800 MG TAB PO SCH ×2 (02:06→10:30)
[2020-12-31 02:07] VITALS: BP 120/77
[2020-12-31] MEDS ORDERED: IBUP80TA PO (04:04)
[2020-12-31] MEDS ORDERED: PERCOCET PO (04:04)
[2020-12-31] MEDS ORDERED: DOCU100C16 PO (04:04)
--- NOTE | 2020-12-31 04:24 | DS.PDOC ---
Discharge Summary General Date of Admission Dec 29, 2020 at 17:36 Date of Discharge 12/31/2020 Discharge Summary DATE OF ADMISSION: 12/29/2020 DATE OF DISCHARGE: 12/31/2020 ADMISSION DIAGNOSIS: 31+ weeks gestation, labor with rupture of membranes, breech presentation, nonreassuring heart rate tracing, septated uterus, IVF DISCHARGE DIAGNOSIS: Same; in addition to above, pelvic adhesive disease left side. DISCHARGE SUMMARY: The patient was admitted at 31+ weeks gestation with a diagnosis of labor/ruptured membranes and breech presentation. Her initial evaluation was also notable for nonreassuring heart rate tracing. She was therefore rushed to the operating room for an emergent section. The section delivery was uncomplicated. Her postoperative course was uncomplicated as well. On postoperative day #2, she was meeting all discharge criteria. PHYSICAL EXAMINATION ON DATE OF DISCHARGE: Normotensive. Normal heart rate. Afebrile. HEART: Regular rate and rhythm. No murmurs, gallops, or rubs. LUNGS: Clear to auscultation bilaterally. ABDOMEN: Soft, nontender, nondistended. Incision bandage clean and dry. EXTREMITIES: Nonedematous, nontender. She was meeting all discharge criteria on postoperative day #2. We reviewed routine fever, infectious, pain, and bleeding precautions. She is to followup in 2 weeks for incision check. Her postoperative medications are Percocet, Motrin, and Colace. Vital Signs/I&Os Vital Signs Date Time Temp Pulse Resp B/P (MAP) Pulse Ox O2 Delivery O2 Flow Rate FiO2 12/31/20 02:07 98.3 86 16 120/77 (91) 12/30/20 22:15 97 Room Air 12/29/20 19:50 2.0 I&O- Last 24 Hours up to 6 AM 12/31/20 06:00 Output Total 1400 ml Balance -1400 ml Laboratory Data Labs 24H Laboratory Tests 2 12/30/20 08:16: Nucleated Red Blood Cells % (auto) 0.0 CBC/BMP Laboratory Tests 12/30/20 08:16 Discharge Medications Scheduled Ascorbic Acid (Vitamin C) 500 Mg Tablet, 1 TAB PO DAILY, (Reported) Docusate Sodium (Docusate Sodium) 100 Mg Capsule, 100 MG PO BID Enoxaparin Sodium (Lovenox) 40 Mg/0.4 Ml Syringe, 30 MG SC DAILY, (Reported) Estradiol (Estrace) 1 Mg Tablet, 2 MG PO QID, (Reported) Ibuprofen (Ibuprofen) 800 Mg Tablet, 800 MG PO Q8H Metformin HCl (Metformin HCl) 500 Mg Tablet, 1 TAB PO TID, (Reported) Naltrexone HCl (Naltrexone HCl) 50 Mg Tablet, 4.5 MG PO DAILY, (Reported) Prednisone (Prednisone) 5 Mg Tablet, 1 TAB PO BID, (Reported) No122/Iron/Folic Acid ( Multi Tablet) 1 Each Tablet, 1 TAB PO DAILY, (Reported) Progesterone, Micronized (Endometrin) 100 Mg Insert, 1 TAB PV BID, (Reported) Psyllium Husk (Fiber) 0.52 Gm Capsule, 2 CAP PO DAILY, (Reported) Ubidecarenone (Coq10) 50 Mg Tab.chew, 2 TAB PO DAILY, (Reported) proGESTerone (Progesterone in Oil) 50 Mg/1 Ml Vial, 50 MG IM DAILY, (Reported) Scheduled PRN Oxycodone/Acetaminophen (Oxycodone-Acetaminophen 5-325) 1 Each Tablet, 1 TAB PO Q4H PRN for MODERATE PAIN (PS 5-7) Miscellaneous Medications [place]-3 Fatty Acids/Fish Oil (Fish Oil 1,000 mg Capsule) Unknown Strength Capsule, Unknown Dose PO, (Reported) Allergies Coded Allergies: Penicillins (Verified Allergy, Intermediate, HIVES, 12/23/19) LEONIDES KINCAID DO Dec 31, 2020 04:24
[2020-12-31 06:00] VITALS: BP 131/83
[2020-12-31] MEDS: PRENATAL VITAMINS CHEWABLE TABLET PO SCH (07:54)
[2020-12-31] MEDS: DOCUSATE SODIUM 100MG CAPSULE PO SCH (07:54)
[2020-12-31 10:05] VITALS: BP 137/83
== END 2020-12-31 11:55 | disposition home or self-care (01) | DRG 540 ==
LOC: M LDO 17:19 → M LDI 17:36 → M OBS 20:30
PROVIDERS: ADMIT Obstetrics & Gynecology; ATTEND Obstetrics & Gynecology
PROC: 30233N1 Transfusion of Nonautologous Red Blood Cells into Peripheral Vein, Percutaneous Approach (ICD-10-PCS; 2020-12-29)
PROC: 10D00Z1 Extraction of Products of Conception, Low, Open Approach (ICD-10-PCS; principal; 2020-12-29 18:00)
DX: O60.14X0 Preterm labor third trimester with preterm delivery third trimester, not applicable or unspecified (principal); O45.93 Premature separation of placenta, unspecified, third trimester; Z3A.31 31 weeks gestation of pregnancy; O32.1XX0 Maternal care for breech presentation, not applicable or unspecified; Z37.0 Single live birth; O76 Abnormality in fetal heart rate and rhythm complicating labor and delivery

== ENCOUNTER → 2024-04-03 | Outpatient (REF) | payer BC ==
[~2024-04-03] MED LIST changes: +DOCU100C16 PO; +IBUP80TA PO; +PERCOCET PO; +PREN1CHW6 PO
== END ==
LOC: M LAB REF 17:48
PROVIDERS: ATTEND Physician Assistant
DX: R05.9 Cough, unspecified (principal)

== ENCOUNTER → 2024-11-09 | Outpatient (CLI) | payer BC ==
[2024-11-09 09:51] LABS: BASO # 0.1 10^3/uL (0.0-0.2); BASO % 0.8 % (0.0-1.0); EOS # 0.4 10^3/uL (0.0-0.5); EOS % 5.0 % (0.0-3.0); LYMPH # 2.7 10^3/uL (1.5-5.0); LYMPH % 31.7 % (24.0-44.0); MONO # 0.6 10^3/uL (0.0-0.8); MONO % 6.6 % (2.0-8.0); NEUTROPHILS # 4.7 10^3/uL (1.5-8.5); NEUTROPHILS % 55.7 % (36.0-66.0); PLATELET COUNT, AUTOMATED 260 10^3/uL (150-450)
[2024-11-09 10:24] LABS: ALT/SGPT 34.0 U/L (7.0-40); AST/SGOT 23.0 U/L (<34); CALCIUM LEVEL 9.2 MG/DL (8.5-10.1); CARBON DIOXIDE LEVEL 28.0 MMOL/L (20-31); CHLORIDE LEVEL 106.0 MMOL/L (98-107); CHOLESTEROL LEVEL 146.0 MG/DL (<200); CHOLESTEROL RISK RATIO 3.85 (<5); CREATININE FOR GFR 0.96 MG/DL (0.55-1.30); GLOMERULAR FILTRATION RATE 77.2 (>60); LDL CHOLESTEROL 78.5 MG/DL (<100); NON-HDL-C 108.1 MG/DL; POTASSIUM SERUM 4.3 MMOL/L (3.5-5.1); SODIUM LEVEL 143.0 MMOL/L (136-145); TRIGLYCERIDES LEVEL 148.0 MG/DL (<150)
== END ==
LOC: M LAB 09:05
PROVIDERS: ATTEND Family Medicine
DX: Z00.00 Encounter for general adult medical examination without abnormal findings (principal)